=== PATIENT | male | born 1965 | race Asian ===

== ENCOUNTER 2023-03-31 09:45 | Emergency (ER) | payer MEDICAID ==
[~2023-03-31] VITALS: Ht 170.2 cm; Wt 78.0 kg
[2023-03-31] MEDS ORDERED: ISOS30TA68 PO (09:57)
[2023-03-31] MEDS ORDERED: AMLO5TAB66 PO (09:57)
[2023-03-31] MEDS ORDERED: LOSA25TA41 PO (09:57)
[2023-03-31] MEDS ORDERED: ROSU10TA72 PO ×2 (09:57→14:44)
[2023-03-31] MEDS ORDERED: [UNRECOGNIZED DRUG - OTHER] PO (09:57)
[2023-03-31] MEDS ORDERED: ASPI81TA87 PO (09:57)
[2023-03-31] MEDS ORDERED: [UNRECOGNIZED DRUG - OTHER] PO (09:57)
[2023-03-31] MEDS ORDERED: METF-1185 PO ×2 (09:57→14:44)
[2023-03-31] MEDS ORDERED: GLIM2TAB30 PO (09:57)
[2023-03-31 09:59] VITALS: TEMP 99.4
[2023-03-31 10:54] LABS: BASOPHILS % (AUTO) 0.4 % (0.0-2.0); EOSINOPHILS % (AUTO) 8.2 % (1.0-6.0); HEMATOCRIT 39.5 % (41-53); HEMOGLOBIN 13.3 g/dL (13.5-17.5); LYMPHOCYTES # (AUTO) 1.2 K/uL (1.0-4.8); LYMPHOCYTES % (AUTO) 23.7 % (22.0-44.0); MEAN CORPUSCULAR HEMOGLOBIN 31.8 pg (26.0-34.0); MEAN CORPUSCULAR HGB CONC 33.7 G/dL (31.0-37.0); MEAN CORPUSCULAR VOLUME 94 fL (80-100); MONOCYTES # (AUTO) 0.4 K/uL (0.1-1.0); MONOCYTES % (AUTO) 8.5 % (2.0-9.0); NEUTROPHILS # (AUTO) 3.1 K/uL (1.8-7.7); NEUTROPHILS % (AUTO) 59.2 % (40.0-70.0); PLATELET COUNT (AUTO) 232 K/uL (150-450); RED BLOOD CELL COUNT(AUTO) 4.19 MIL/uL (4.50-5.90); RED CELL DISTRIBUTION WIDTH 12.4 % (11.5-14.5)
[2023-03-31 11:02] LABS: ANION GAP 9 mmol/L (8-16); CALCIUM, TOTAL 9.1 mg/dL (8.8-10.5); CARBON DIOXIDE 26 mmol/L (22-29); CHLORIDE 104 mmol/L (98-107); CREATININE 0.98 mg/dL (0.60-1.30); GLOMERULAR FILTR. RATE CALC > 60 mL/min (>60); GLUCOSE,RANDOM 174 mg/dL (70-110); POTASSIUM 4.1 mmol/L (3.5-5.1); SODIUM SERUM 139 mmol/L (136-145)
[2023-03-31 11:08] LABS: ALANINE AMINOTRANSFERASE 16 U/L (12-78); ALBUMIN 3.8 g/dL (3.4-5.0); ALKALINE PHOSPHATASE 50 U/L (46-116); ASPARTATE AMINOTRANSFERASE 15 U/L (15-37); BILIRUBIN,TOTAL 0.3 mg/dL (0.1-1.0); LIPASE 43 U/L (16-77); TOTAL PROTEIN, SERUM 7.4 g/dL (6.4-8.2)
[2023-03-31 14:40] VITALS: BP 123/75; PULSE 67; RESP 16
[2023-03-31] MEDS ORDERED: ASPI-1227 PO (14:44)
[2023-03-31] MEDS ORDERED: GLIM2 PO (14:44)
[2023-03-31] MEDS ORDERED: ISOS30TA92 PO (14:44)
[2023-03-31] MEDS ORDERED: LOSA-382 PO (14:44)
[2023-03-31] MEDS ORDERED: AMLO-257 PO (14:44)
== END 2023-03-31 15:05 | disposition home or self-care (01) ==
LOC: EMS 09:48
DX: K59.00 Constipation, unspecified (principal); R10.84 Generalized abdominal pain; I69.30 Unspecified sequelae of cerebral infarction; I10 Essential (primary) hypertension; E11.65 Type 2 diabetes mellitus with hyperglycemia; E78.00 Pure hypercholesterolemia, unspecified; F17.210 Nicotine dependence, cigarettes, uncomplicated
CPT/HCPCS: 70450; 71045; 74176; 80053; 82962; 83690; 84484; 85025; 93005; 99285; 36415-L1; 36415-TC